=== PATIENT | female | born 1990 | race Caucasian/White ===

== ENCOUNTER 2016-10-08 05:28 | Emergency (ER) | payer MEDICAID ==
[2016-10-08] MEDS ORDERED: ONDANSETRON 4 MG VIAL ONE (07:16)
[2016-10-08] MEDS ORDERED: SODIUM CHLORIDE 0.9% 1,000 ML ONE (07:16)
[2016-10-08] MEDS ORDERED: DICYCLOMINE 20MG/2ML VIAL IM ONE (07:36)
== END 2016-10-08 11:05 | disposition home or self-care (01) ==
LOC: ER 05:28
CPT/HCPCS: 36415; 74022; 80053; 81003; 83690; 84703; 85025; 96361; 96374